=== PATIENT | female | born 1975 | race Caucasian/White ===

== ENCOUNTER 2017-01-11 11:29 | Emergency (ER) | payer OTHER ==
[2017-01-11 11:40] VITALS: RESP 18; TEMP 97.4
--- NOTE | 2017-01-11 13:41 | DI ---
RIGHT ANKLE, 01/11/2017 10:41 AM: Clinical History: Right ankle injury. Pain. Previous Exam: None at this facility. 3 views are submitted. There is soft tissue swelling over the lateral malleolus, but no acute fractur e or dislocation is evident. There is no joint effusion. The ankle processes intact. There are bony d ensities at the tip of the medial malleolus consistent with previous injury to the deltoid ligament. Reading: Soft tissue swelling laterally. No acute fracture or dislocation is identified.
--- NOTE | 2017-01-12 00:30 | PDOC ---
Foot / Ankle Injury - General Chief Complaint: Lower Extremity Problem/Injury Stated Complaint: twisted right ankle Date Seen by Provider: 01/11/17 Time Seen by Provider: 11:30 Source: POSITIVE: Patient Exam Limitations: POSITIVE: No limitations Nurse's Notes Reviewed & Considered: Yes - History of Present Illness Initial Comments: The patient is a 41 year old female. [place] uneven spot in the pavement and fell, forcing her right foot into inversion. She is complained of pain to the lateral and medial aspects of the ankle since. Some swelling over the lateral aspect of the ankle. Incident occurred early this morning. She has been ambulating, but with some discomfort. No sensory or motor symptoms. Have you received a tetanus shot in the past 10 years?: Yes Location: Right Ankle Timing: REPORTS: Abrupt Duration: <24 hours Severity: Moderate Quality: REPORTS: "Pain" Location at Time of Onset: REPORTS: Other Context: REPORTS: Fall, Twist Modifying Factors: REPORTS: Other (exacerbated by direct palpation and weightbearing) Associated Symptoms: DENIES: Tingling Distally, Numbness Distally, Swelling, Snapping Sensation, Popping Sensation, Other Any Prior Injuries Related to Current Complaint?: No - Patient Allergies Allergies/Adverse Reactions: Allergies Allergy/AdvReac Type Severity Reaction Status Date / Time Sulfa (Sulfonamide Allergy NOT Verified 01/11/17 11:32 Antibiotics) APPLICABLE - Patient Home Medications Home Medications: Home Medications NK [No Home Medications Reported] 08/20/13 Past Medical History - heen HEENT History: Denies History Cardiovascular History: Arrhythmia, Other (please comment) Additional Cardiovasular History: hx SVT- ablation (2007) Respiratory History: Denies History Gastrointestinal History: Denies History Genitourinary History: Denies History Endocrine History: Denies History Musculoskeletal History: Other (please comment) Additional Musculoskeletal History: chronic neck pain Neurological History: Denies History Blood Disorders: Denies History Psychiatric History: Denies History History of Sexually Transmitted Diseases: No Female Reproductive History: Hysterectomy Cancer History: Denies History In Past Year Been Physically Harmed or Verbally Threatened: No History of MDRO: No History of Other Communicable Diseases: No Tobacco Use: Former Smoker Alcohol Use: None Substance Use Type: None Previous Surgical History: Yes Type / Date of Surgery: cardiac ablation (2007). tubal ligation Significant Family History: No pertinent family hx Past Medical History Reviewed: Reviewed - No Changes ROS - Limitations ROS Limitations: No Limitations Constitution: REPORTS: Denies Symptoms Cardiovascular: REPORTS: Denies Cardiac Symptoms Respiratory: REPORTS: Denies Resp Symptoms Neurological: REPORTS: Denies Neuro Symptoms Gastrointestinal: REPORTS: Denies GI Symptoms Endocrine: REPORTS: Denies Symptoms Musculoskeletal: REPORTS: Joint Pain (Right ankle), Recent Injury (As above) Genitourinary: REPORTS: Denies Symptoms Eyes: REPORTS: Denies Symptoms ENT: REPORTS: Denies Symptoms Skin: REPORTS: Denies Skin Symptoms Lympathic: REPORTS: Denies Lympathic Symptoms Immunologic: POSITIVE: Denies Symptoms Psychiatric: POSITIVE: Denies Psych Symptoms Foot / Ankle Exam - General Appearance General Appearance: POSITIVE: Alert, Cooperative, No Acute Distress. NEGATIVE: No Evidence of Trauma - Extremities Foot: POSITIVE: Normal Inspection, Non-Tender Ankle: POSITIVE: Normal ROM, Stable, Soft-Tissue Tenderness, Bony Tenderness, Swelling (over lateral malleolus), See Diagram. NEGATIVE: Ecchymosis, Limited ROM, Deformity, Ligamentous Instability Gait: POSITIVE: Antalgic Gait Neuro: POSITIVE: Sensation Normal, Motor Normal Vascular: POSITIVE: No Vascular Compromise, Full Pulses, Equal Pulses Tendons: POSITIVE: Tendon Function Normal Skin: POSITIVE: Warm, Dry - Neck / Back Neck / Back: Normal Inspection - Respiratory / CVS Respiratory / CVS: POSITIVE: Chest Non-Tender, No Respiratory Distress, Heart Sounds Normal, Regular Rate/Rhythm, Breath Sounds Normal Peripheral Pulses: Radial (R): 2+, Radial (L): 2+, Dorsalis-pedis (R): 2+, Dorsalis-pedis (L): 2+ Images - Lower Extremities Lower Extremities: 1 - Swelling; discomfort on palpation 2 - Discomfort on palpation Procedures - Splinting Time Splint Applied: 11:55 Location: Cam Walker, right leg Pre-Proc Neuro Vasc Exam: Normal Splint Type: CAM Walker Splint Form: Short Extremity Applied By:: Senior Svp Post-Proc Neuro Vasc Exam: Normal Foot / Ankle Progress - Results Reviewed by me Pain Medication Addressed: POSITIVE: Yes (recommended Advil or Tylenol) School/Work Release Addressed: POSITIVE: Yes (light duty for 10 days) Xrays/CTs/US Reviewed by me: Yes Discussed with Radiologist: No Radiology Results: POSITIVE: Right, Ankle Radiology Findings: X-ray right ankle shows no fractures or dislocations - Patient's Progress Re-Examine Time:: 12:05 Re-Examine Comment: Feels better with Cam Walker Status: POSITIVE: Improved, Re-Examined - Consult Counseled: POSITIVE: Patient, RE: Radiology Results, RE: DX, RE: Need for F/U Patient Care Time - Estimated PCT Patient Care Time (In Minutes): 26 Vital Signs - VS Reviewed Vital Signs Reviewed: Yes Discharge Clinical Impression: Sprain of ankle Discharge Disposition: Discharged to Home Condition: Fair Patient Instructions Given at Discharge: Ankle Sprain (ED) Additional Instructions: Wear cam walker. No running and reduced weightbearing, light duty, for 10 days. Elevate leg. Advil or Tylenol for pain. Return anytime if condition worsens in any way. Follow-up with your primary care provider. Wear cam walker for 10 days. Follow Up With: DENNIS WALKER [Primary Care Provider] - (Instructions as above. Follow-up with your primary care provider. Return here as necessary.)
== END 2017-01-11 12:17 | disposition home or self-care (01) ==
LOC: ER 11:29
DX: S93.401A Sprain of unspecified ligament of right ankle, initial encounter (principal); W01.0XXA Fall on same level from slipping, tripping and stumbling without subsequent striking against object, initial encounter; Y92.488 Other paved roadways as the place of occurrence of the external cause; Y99.0 Civilian activity done for income or pay
CPT/HCPCS: 73610; 99282